=== PATIENT | male | born 1980 | race Caucasian/White ===

== ENCOUNTER 2017-03-26 14:39 | Emergency (ER) | payer OTHER ==
[~2017-03-26] VITALS: Ht 175.3 cm; Wt 77.1 kg
[2017-03-26 15:23] LABS: ABSOLUTE NEUTROPHILS 6.6 thou/uL (1.4-8.2); BASOPHILS 0.6 % (0.0-2.0); EOSINOPHILS 0.1 % (0.0-3.0); HEMATOCRIT 44.1 % (42.0-52.0); LYMPHOCYTES 13.9 % (24.0-44.0); MCH 33.4 pg (26.0-34.0); MCHC 34.1 g/dL (28.0-37.0); MCV 98.1 fL (80.0-100.0); MONOCYTES 8.3 % (1.0-8.0); PLATELET COUNT 196 thou/uL (150-400); POLYS 77.1 % (36.0-66.0); RDW 13.3 % (10.5-14.5); WBC 8.6 thou/uL (4.0-11.0)
[2017-03-26 15:28] LABS: MANUAL DIFF NO
[2017-03-26 15:33] LABS: CREATININE 1.1 mg/dL (0.7-1.3); POTASSIUM 3.5 mmol/L (3.5-5.1)
[2017-03-26 15:39] LABS: ALBUMIN 4.5 g/dL (3.4-5.0); MAGNESIUM 1.5 mg/dL (1.8-2.4); TOTAL BILIRUBIN 0.5 mg/dL (<0.1-1.0); TOTAL PROTEIN 7.7 g/dL (6.4-8.2)
[2017-03-26 16:18] LABS: AMP/METHAMP Negative (Negative); BARBITURATES Negative (Negative); BENZODIAZEPINES Negative (Negative); COCAINE Negative (Negative); METHADONE Negative (Negative); OPIATES Negative (Negative); PCP Negative (Negative); THC POSITIVE (Negative)
[2017-03-26] MEDS ORDERED: CHLORDIAZEPOXID25 M1 PO (16:41)
[2017-03-26 17:21] VITALS: BP 120/79
== END 2017-03-26 17:22 | disposition home or self-care (01) ==
LOC: ER 14:39
PROVIDERS: Physician Assistant
DX: F10.231 Alcohol dependence with withdrawal delirium (principal); E83.42 Hypomagnesemia; F17.210 Nicotine dependence, cigarettes, uncomplicated; F12.10 Cannabis abuse, uncomplicated; Z71.41 Alcohol abuse counseling and surveillance of alcoholic